=== PATIENT | male | born 1990 | race Caucasian/White ===

== ENCOUNTER 2016-09-19 07:31 | Emergency (ER) | payer BC ==
--- NOTE | 2016-09-19 07:37 | PDOC ---
History of Present Illness - General Chief Complaint: Pain, Acute Stated Complaint: TENDERNESS BILATERAL FLANK Time Seen by Provider: 09/19/16 07:33 History Source: Patient Exam Limitations: No Limitations - History of Present Illness Initial Comments: 09/19/16 07:52 This is a 25 yo M with a history of recurrent kidney stones who presents with a complaint of bilateral flank pain. Pt symptoms began 2 days ago. He awoke at 4:30 am with left flank pain which was severe. He took left over Percocet and Flomax. Symptoms resolved approximately 20 minutes later. He was well over the rest of the day. Yesterday, he awoke with left flank pain again at 4:30am. He was able to go to work because pain was manageable. He awoke this morning and noted that when he attempted to urinate, he did not have much urine output and what came out was very dark He states pain is mild, describes it as an "ache", rated 2/10, no radiation to the groin He has not taken any pain medications today He denies dysuria, fevers, chills He is tolerating po He denies excessive exercise or new work outs Pt denies muscle tightness/firmness Pt denies trauma of any kind No recent travel 09/19/16 07:53 PMH: kidney stones PSH: lithotrypsy x 2 Meds: denies ALL: NKDA Social: denies drug or cigarette use GENERAL/CONSTITUTIONAL: No: fever, chills, weakness, loss of appetite. HEAD, EYES, EARS, NOSE AND THROAT: No: change in vision, ear pain, discharge, sore throat, throat swelling. CARDIOVASCULAR: No: chest pain, lightheadedness, palpitations, syncope RESPIRATORY: No: cough, shortness of breath, wheezing, hemoptysis, stridor. GASTROINTESTINAL: No: nausea, vomiting, diarrhea, abdominal cramping, rectal bleeding, constipation. GENITOURINARY: No: dysuria, hematuria, frequency, urgency, flank pain. MUSCULOSKELETAL: Yes: bilateral flank discomfort No: neck pain, joint pain, muscle swelling or pain SKIN AND BREASTS: No: lesions, pallor, rash or easy bruising. NEUROLOGIC: No: headache, vertigo, paresthesias, weakness ENDOCRINE: No: unexplained weight gain or loss HEMATOLOGIC/LYMPHATIC: No: anemia, easy bleeding, swelling nodes. GENERAL: The patient is in no acute distress. HEAD: Normal with no signs of trauma. EYES: PERRLA, EOMI, sclera anicteric, conjunctiva clear. ENT: Ears normal, nares patent, oropharynx clear without exudates. Moist mucous membranes. NECK: Normal range of motion, supple without lymphadenopathy, JVD, or masses. LUNGS: Breath sounds equal, clear to auscultation bilaterally. No wheezes, and no crackles. HEART:Regular rate and rhythm, normal S1 and S2 without murmur, rub or gallop. ABDOMEN: Soft, nontender, normoactive bowel sounds. No guarding, no rebound. No masses palpable. EXTREMITIES: Normal range of motion, no edema. No clubbing or cyanosis. No erythema, or tenderness. NEUROLOGICAL: Cranial nerves II through XII grossly intact. Normal speech. No focal neurological deficits. MUSCULOSKELETAL: No CVA tenderness SKIN: Warm, Dry, normal turgor, no rashes or lesions noted. Past History - Past Medical History Allergies/Adverse Reactions: Allergies Allergy/AdvReac Type Severity Reaction Status Date / Time No Known Allergies Allergy Verified 09/19/16 07:33 Home Medications: Ambulatory Orders NK [No Known Home Medication] 09/19/16 Disorders: Yes (KIDNEY STONES) - Immunization History Immunization Up to Date: No - Psycho/Social/Smoking Cessation Hx Anxiety: No Suicidal Ideation: No Smoking Status: No Smoking History: Unknown if ever smoked Number of Cigarettes Smoked Daily: 0 Cigars Per Day: 0 'Breaking Loose' booklet given: 05/20/13 Hx Alcohol Use: No Substance Use Type: Marijuana ED Treatment Course - LABORATORY CBC & Chemistry Diagram: 09/19/16 07:45 09/19/16 07:45 Medical Decision Making - Medical Decision Making 09/19/16 08:05 25 yo M presenting to the ER with flank pain Pt has a history of kidney stones 09/19/16 08:07 Will do labs Will do renal US (pt has had 4 CTs in the past few years) Will give IVF Pt does not want strong pain meds Will give Tylenol IV (pt has had not renal insufficiency historically, unclear if discolored urine is the result of ATN) Will re assess 09/19/16 08:30 Laboratory Tests 05/15/15 05/15/15 09/19/16 03:30 03:30 07:45 WBC 9.8 D 7.5 Hgb 16.2 16.2 Hct 48.7 49.0 Plt Count 318 D 280 Neutrophils % 56.8 D Lymphocytes % 32.2 D BUN 19 H Creatinine 1.2 Random Glucose 112 H D Urine RBC Urine WBC Ur Epithelial Cells Urine Bacteria 09/19/16 09/19/16 07:45 07:45 WBC Hgb Hct Plt Count Neutrophils % Lymphocytes % BUN 14 D Creatinine 1.1 Random Glucose 117 H Urine RBC 5-10 Urine WBC 0-3 Ur Epithelial Cells Moderate Urine Bacteria Moderate US pending Pt has slight pain Will give toradol 09/19/16 10:18 Laboratory Tests 09/19/16 07:45 Total Bilirubin 0.8 Direct Bilirubin 0.1 AST 46 H D ALT 66 H D Alkaline Phosphatase 57 Total Protein 7.6 Albumin 4.5 09/19/16 10:20 09/19/16 12:30 Laboratory Tests 09/19/16 10:35 Acetaminophen < 2 L 09/19/16 12:31 U/S: no hydronephrosis per verbal report by Dr Mercedes No read officially in the system to give to patient Will ask pt to follow up with Dr Wing within 1 week I discussed the physical exam findings, ancillary test results and final diagnoses with the patient. I answered all of the patient's questions. The patient was satisfied with the care received and felt comfortable with the discharge plan and treatment plan. The patient will call their primary care physician within 24 hours to arrange follow-up and will return to the Emergency Department with any new, persistent or worsening symptoms. *DC/Admit/Observation/Transfer Diagnosis at time of Disposition: Acute flank pain - Discharge Dispostion Disposition: HOME Condition at time of disposition: Stable Admit: No - Patient Instructions Printed Discharge Instructions: DI for Flank Pain Additional Instructions: Vu Thank you for coming in to the ER today Please review your labs and ultrasound Please stay hydrated, drink as much fluid as possible Please follow up with your Urologist in 2-3 days Please continue to strain your urine The liver function numbers are slightly elevated You should follow this up in the next week (earlier if you notice abdominal pain , changes in the whites of your eyes, any new symptoms) - Post Discharge Activity Work/School Note: Back to Work
[2016-09-19 07:38] VITALS: BP 151/103; PULSE 115; TEMP 98.4; BMI 27.9
[2016-09-19 07:51] LABS: BASOPHIL 2.8 % (0-2.0); EOSINOPHIL 1.2 % (0-4.5); MCH 29.1 pg (25.7-33.7); MCHC 33.2 g/dl (32.0-35.9); MEAN CELL VOLUME 87.9 fl (80-96); MEAN PLT VOLUME 8.3 fl (7.5-11.1); NEUTROPHILS 56.8 % (42.8-82.8); PLATELET COUNT 280 K/MM3 (134-434); RDW 12.5 % (11.9-15.9); WHITE BLOOD COUNT 7.5 K/mm3 (4.0-10.0)
[2016-09-19] MEDS ORDERED: ACETAMINOPHEN 1000 MG/100 ML VIAL (NON FORMULARY) IVPB ONE (07:53)
[2016-09-19] MEDS ORDERED: SODIUM CHLORIDE 0.9% 1000 ML INFUS.BAG IV ONE (07:53)
[2016-09-19 07:54] LABS: PH,URINE 5.5 (4.5-8); URINE APPEARANCE CLOUDY; URINE BILIRUBIN Negative (NEGATIVE); URINE BLOOD 3+ (NEGATIVE); URINE COLOR YELLOW; URINE GLUCOSE (UA) Negative (NEGATIVE); URINE KETONE Negative (NEGATIVE); URINE LEUK ESTERASE Negative (NEGATIVE); URINE NITRITE Negative (NEGATIVE); URINE PROTEIN 1+ (NEGATIVE); URINE UROBILINOGEN 0.2 E.U/dl (0.2-1.0)
[2016-09-19 07:55] LABS: URINE BACTERIA MODERATE /hpf (NEGATIVE); URINE WBC 0-3 (3-5)
[2016-09-19 07:56] LABS: URINE MUCUS FEW
[2016-09-19 08:08] LABS: CALCIUM 9.4 mg/dl (8.4-10.2); CREATININE 1.1 mg/dl (0.6-1.3)
[2016-09-19] MEDS ORDERED: ACETAMINOPHEN INJECTION 100 ML IVPB ONE (08:13)
[2016-09-19] MEDS ORDERED: KETOROLAC TROMETHAMINE 30 MG/1 ML VIAL ONE (09:09)
[2016-09-19] MEDS ORDERED: KETOROLAC TROMETHAMINE 30 MG/1 ML VIAL IVPUSH ONE (09:09)
[2016-09-19 10:11] LABS: ALBUMIN 4.5 g/dl (3.5-5.0); BILIRUBIN,DIRECT 0.1 mg/dl (0.0-0.2); BILIRUBIN,TOTAL 0.8 mg/dl (0.2-1.0); TOT PROT 7.6 g/dl (6.4-8.3)
== END 2016-09-19 12:37 | disposition home or self-care (01) ==
LOC: FER 07:31
PROC: 3E033NZ Introduction of Analgesics, Hypnotics, Sedatives into Peripheral Vein, Percutaneous Approach (ICD-10-PCS; principal; 2016-09-19)
PROC: 3E0333Z Introduction of Anti-inflammatory into Peripheral Vein, Percutaneous Approach (ICD-10-PCS; 2016-09-19)
DX: R10.9 Unspecified abdominal pain (principal); Z87.442 Personal history of urinary calculi
CPT/HCPCS: 36415; 76775-TC; 80048; 80076; 80307; 81003; 81015; 85025; 99282-25

== ENCOUNTER 2016-10-02 12:41 | Emergency (ER) | payer BC ==
[2016-10-02] MEDS ORDERED: KETOROLAC TROMETHAMINE 30 MG/1 ML VIAL IVPUSH ONE (12:53)
[2016-10-02] MEDS ORDERED: TAMSULOSIN HCL 0.4 MG CAP.ER.24H (FP) PO ONE (12:53)
[2016-10-02] MEDS ORDERED: SODIUM CHLORIDE 1,000 ML IV STA (12:53)
[2016-10-02 12:55] VITALS: TEMP 98.7; BMI 28.4
[2016-10-02] MEDS ORDERED: TAMSULOSIN HCL 0.4 MG CAP.ER.24H (FP) ONE (13:02)
[2016-10-02] MEDS ORDERED: KETOROLAC TROMETHAMINE 30 MG/1 ML VIAL ONE (13:02)
--- NOTE | 2016-10-02 13:05 | PDOC ---
History of Present Illness - General Chief Complaint: Hematuria Stated Complaint: FLANK PAIN Time Seen by Provider: 10/02/16 12:46 History Source: Patient, Old Records Exam Limitations: No Limitations - History of Present Illness Initial Comments: 10/02/16 13:01 25-year-old male with past medical history of kidney stones, bilateral, history of lithotripsy presents with bilateral flank pain since yesterday. Patient was recently here on September 19 for left flank pain and hematuria. He had an ultrasound performed which demonstrated bilateral kidney stones. The patient was discharged on pain medications and Flomax. Patient reported that his pain resolved after day or so as well as his hematuria. Noted yesterday that he was started and developed bilateral flank pains again. And hematuria consistent with his prior kidney stones. Denies fevers, chills. Reports mild dysuria but thinks it secondary to the stones. Past History - Past Medical History Allergies/Adverse Reactions: Allergies Allergy/AdvReac Type Severity Reaction Status Date / Time No Known Allergies Allergy Verified 09/19/16 07:33 Home Medications: Ambulatory Orders NK [No Known Home Medication] 09/19/16 Disorders: Yes (KIDNEY STONES) Kidney Stones: Yes - Immunization History Immunization Up to Date: No - Psycho/Social/Smoking Cessation Hx Anxiety: No Suicidal Ideation: No Smoking Status: No Smoking History: Unknown if ever smoked Have you smoked in the past 12 months: No Number of Cigarettes Smoked Daily: 0 Cigars Per Day: 0 Information on smoking cessation initiated: No 'Breaking Loose' booklet given: 05/20/13 Hx Alcohol Use: No Drug/Substance Use Hx: Yes Substance Use Type: Marijuana Review of Systems - Review of Systems Able to Perform ROS?: Yes Comments:: 10/02/16 13:02 GENERAL/CONSTITUTIONAL: No fever, weakness. HEAD, EYES, EARS, NOSE AND THROAT: No change in vision. No ear pain or discharge. No sore throat. CARDIOVASCULAR: No chest pain or shortness of breath. RESPIRATORY: No cough, wheezing, or hemoptysis. GASTROINTESTINAL: No abdominal pain, nausea, vomiting, diarrhea, or decreased PO intolerance. GENITOURINARY: Bilateral flank pain and hematuria MUSCULOSKELETAL: No joint or muscle swelling or pain. No neck or back pain. SKIN: No rash NEUROLOGIC: No headache, vertigo, loss of consciousness, or change in strength/ sensation. ENDOCRINE: No increased thirst. No abnormal weight change. HEMATOLOGIC/LYMPHATIC: No anemia, easy bleeding, or history of blood clots. ALLERGIC/IMMUNOLOGIC: No hives or skin allergy. *Physical Exam - Vital Signs Last Vital Signs Temp Pulse Resp BP Pulse Ox 98.7 F 86 16 139/99 98 10/02/16 12:43 10/02/16 12:43 10/02/16 12:43 10/02/16 12:43 10/02/16 12:43 - Physical Exam Comments: 10/02/16 13:02 GENERAL: Awake, alert, and fully oriented, in no acute distress. HEAD: No signs of trauma EYES: PERRLA, EOMI, sclera anicteric, conjunctiva clear ENT: Auricles normal inspection, hearing grossly normal, nares patent, oropharynx clear without exudates. NECK: Normal ROM, supple, no lymphadenopathy, JVD, or masses LUNGS: Breath sounds equal, clear to auscultation bilaterally. No wheezes, and no crackles HEART: Regular rate and rhythm, normal S1 and S2, no murmurs, rubs or gallops ABDOMEN: Soft, nontender, normoactive bowel sounds. No guarding, no rebound. No masses. + bilateral CVA tenderness EXTREMITIES: Normal range of motion, no edema. No clubbing or cyanosis. No cords, erythema, or tenderness NEUROLOGICAL: Cranial nerves II through XII grossly intact. Normal speech, normal gait SKIN: Warm, Dry, normal turgor, no rashes or lesions noted. ED Treatment Course - LABORATORY CBC & Chemistry Diagram: 10/02/16 13:09 10/02/16 14:12 Medical Decision Making - Medical Decision Making 10/02/16 13:04 A portion of this note was documented by scribe services under my direction. I have reviewed the details of the note, within reason, and agree with the documentation with the following case summary and management plan written by me. Patient treated in the ED. Nursing notes are reviewed and incorporated into the medical decision-making. Vital signs reviewed. Peripheral IV access obtained by the nurse, laboratory studies are drawn and sent, reviewed and interpreted by myself. Vital Signs Temp Pulse Resp BP Pulse Ox 98.7 F 86 16 139/99 98 10/02/16 12:43 10/02/16 12:43 10/02/16 12:43 10/02/16 12:43 10/02/16 12:43 Given that the patient had an region ultrasound done on September 19 the demonstrates bilateral small kidney stones. I suspect that the patient is likely passing more kidney stones. Given that there is no identification of large kidney stones on prior ultrasounds and patient is in mild to mild/ moderate pain, we'll check labs, urinalysis and give Toradol and Flomax and reassess. If the workup is consistent with kidney stones and the patient exhibits improvement with symptoms management, we'll discharge patient with urology follow-up. 10/02/16 15:05 CBC, BMP 10/02/16 13:09 10/02/16 14:12 CMP Sodium 141 mmol/L (136-145) 10/02/16 14:12 Potassium 3.6 mmol/L (3.5-5.1) 10/02/16 14:12 Chloride 106 mmol/L (98-107) 10/02/16 14:12 Carbon Dioxide 27 mmol/L (22-28) 10/02/16 14:12 Anion Gap 8 (8-16) 10/02/16 14:12 BUN 15 mg/dl (7-18) 10/02/16 14:12 Creatinine 1.1 mg/dl (0.6-1.3) 10/02/16 14:12 Creat Clearance w eGFR > 60 (>60) 10/02/16 14:12 Random Glucose 93 mg/dl (74-106) D 10/02/16 14:12 Calcium 9.1 mg/dl (8.4-10.2) 10/02/16 14:12 Total Bilirubin 1.0 mg/dl (0.2-1.0) D 10/02/16 14:12 AST 26 U/L (10-42) D 10/02/16 14:12 ALT 32 U/L (10-40) D 10/02/16 14:12 Alkaline Phosphatase 48 U/L (32-92) 10/02/16 14:12 Total Protein 6.0 g/dl (6.4-8.3) L D 10/02/16 14:12 Albumin 3.8 g/dl (3.5-5.0) 10/02/16 14:12 Lipase 40 U/L (22-51) 10/02/16 14:12 Urine Test Results Urine Color Yellow 10/02/16 13:09 Urine Appearance Cloudy 10/02/16 13:09 Urine pH >= 9.0 (4.5-8) H D 10/02/16 13:09 Ur Specific [place] 1.015 (1.005-1.025) 10/02/16 13:09 Urine Protein 2+ (NEGATIVE) H 10/02/16 13:09 Urine Glucose (UA) Negative (NEGATIVE) 10/02/16 13:09 Urine Ketones Negative (NEGATIVE) 10/02/16 13:09 Urine Blood 3+ (NEGATIVE) H 10/02/16 13:09 Urine Nitrite Negative (NEGATIVE) 10/02/16 13:09 Urine Bilirubin Negative (NEGATIVE) 10/02/16 13:09 Ur Leukocyte Esterase Negative (NEGATIVE) 10/02/16 13:09 Urine RBC 30-50 /hpf (0-3) 10/02/16 13:09 Urine WBC 0-3 (3-5) 10/02/16 13:09 Ur Epithelial Cells Moderate /HPF 10/02/16 13:09 Urine Bacteria Moderate /hpf (NEGATIVE) 10/02/16 13:09 Blood work reviewed.. Urinalysis appears consistent with renal colic. Patient reports feeling better. I instructed the patient continue taking his Flomax and to take his medications. Patient reports that he has Percocets and Flomax from his previous visit. He will follow-up with his urologist Dr. Escobedo. Patient will go home with his significant other. I discussed the physical exam findings, ancillary test results and final diagnoses with the patient. I answered all of the patient's questions. The patient was satisfied with the care received and felt comfortable with the discharge plan and treatment plan. The patient will call their primary care physician within 24 hours to arrange follow-up and will return to the Emergency Department with any new, persistant or worsening symptoms. *DC/Admit/Observation/Transfer Diagnosis at time of Disposition: Renal colic, bilateral - Discharge Dispostion Disposition: HOME Condition at time of disposition: Improved - Referrals Referrals: Vu Craven MD [Staff Physician] - - Patient Instructions Printed Discharge Instructions: Kidney Stones -- Adult Additional Instructions: Please take your Flomax daily area you may take 600 mg of ibuprofen every 6 hours as needed for pain. For additional relief, take your tablet of Percocet every 6-8 hours as needed for pain. Please drink plenty fluids and rest. It is very important that you follow-up with your urologist. Call to schedule appointment.
[2016-10-02 13:21] LABS: PH,URINE >= 9.0 (4.5-8); URINE APPEARANCE Cloudy; URINE BILIRUBIN Negative (NEGATIVE); URINE GLUCOSE (UA) Negative (NEGATIVE); URINE KETONE Negative (NEGATIVE); URINE LEUK ESTERASE Negative (NEGATIVE); URINE NITRITE Negative (NEGATIVE); URINE UROBILINOGEN 0.2 E.U/dl (0.2-1.0)
[2016-10-02 13:23] LABS: URINE BLOOD 3+ (NEGATIVE); URINE COLOR YELLOW; URINE PROTEIN 2+ (NEGATIVE)
[2016-10-02 13:24] LABS: URINE RBC 30-50 /hpf (0-3); URINE WBC 0-3 (3-5)
[2016-10-02 13:25] LABS: RED BLOOD CELL CAST 0-3; URINE BACTERIA MODERATE /hpf (NEGATIVE); URINE HYALINE CAST 0-3 /lpf
[2016-10-02 13:38] LABS: EOSINOPHIL 0.7 % (0-4.5)
[2016-10-02 14:04] LABS: BASOPHIL 0.8 % (0-2.0); MCH 29.7 pg (25.7-33.7); MCHC 34.2 g/dl (32.0-35.9); MEAN CELL VOLUME 86.8 fl (80-96); MEAN PLT VOLUME 8.9 fl (7.5-11.1); NEUTROPHILS 65.6 % (42.8-82.8); PLATELET COUNT 290 K/MM3 (134-434); RDW 12.8 % (11.9-15.9); WHITE BLOOD COUNT 6.3 K/mm3 (4.0-10.0)
[2016-10-02 14:46] LABS: ALBUMIN 3.8 g/dl (3.5-5.0); ALK PHOS 48 U/L (32-92); ANION GAP 8 (8-16); CALCIUM 9.1 mg/dl (8.4-10.2); CO2 27 mmol/L (22-28); CREATININE 1.1 mg/dl (0.6-1.3); GLUCOSE,RANDOM 93 mg/dl (74-106); SGOT/AST 26 U/L (10-42); SGPT/ALT 32 U/L (10-40)
[2016-10-02] MEDS ORDERED: morphine CARPU-JECT 4 MG/1 ML DISP.SYRIN IVPUSH ONE (15:05)
[2016-10-02] MEDS ORDERED: morphine CARPU-JECT 10 MG/1 ML DISP.SYRIN ONE (15:15)
[2016-10-02 16:05] VITALS: BP 158/108; PULSE 91
== END 2016-10-02 16:10 | disposition home or self-care (01) ==
LOC: FER 12:41
PROC: 3E0333Z Introduction of Anti-inflammatory into Peripheral Vein, Percutaneous Approach (ICD-10-PCS; principal; 2016-10-02)
PROC: 3E033NZ Introduction of Analgesics, Hypnotics, Sedatives into Peripheral Vein, Percutaneous Approach (ICD-10-PCS; 2016-10-02)
PROC: 3E0337Z Introduction of Electrolytic and Water Balance Substance into Peripheral Vein, Percutaneous Approach (ICD-10-PCS; 2016-10-02)
DX: N23 Unspecified renal colic (principal); Z87.442 Personal history of urinary calculi
CPT/HCPCS: 36415; 80053; 81003; 81015; 83690; 85025; 87086; 99283-25

== ENCOUNTER 2017-03-01 05:53 | Emergency (ER) | payer BC ==
[2017-03-01] MEDS ORDERED: KETOROLAC TROMETHAMINE 30 MG/1 ML VIAL ONE (06:01)
[2017-03-01] MEDS ORDERED: ONDANSETRON 4 MG/2 ML VIAL ONE (06:01)
[2017-03-01 06:10] VITALS: TEMP 97.7; BMI 27.9
[2017-03-01] MEDS ORDERED: morphine CARPU-JECT 4 MG/1 ML DISP.SYRIN ONE ×3 (06:24→07:34)
--- NOTE | 2017-03-01 06:27 | PDOC ---
History of Present Illness - General Chief Complaint: Pain, Acute Stated Complaint: RT FLANK PAIN Time Seen by Provider: 03/01/17 06:27 History Source: Patient Exam Limitations: No Limitations Past History - Past Medical History Allergies/Adverse Reactions: Allergies Allergy/AdvReac Type Severity Reaction Status Date / Time No Known Allergies Allergy Verified 09/19/16 07:33 Home Medications: Ambulatory Orders NK [No Known Home Medication] 09/19/16 Disorders: Yes (KIDNEY STONES) Kidney Stones: Yes - Immunization History Immunization Up to Date: No - Psycho/Social/Smoking Cessation Hx Anxiety: No Suicidal Ideation: No Smoking Status: No Smoking History: Never smoked Have you smoked in the past 12 months: No Number of Cigarettes Smoked Daily: 0 Cigars Per Day: 0 'Breaking Loose' booklet given: 05/20/13 Hx Alcohol Use: No Drug/Substance Use Hx: Yes Substance Use Type: Marijuana *Physical Exam - Vital Signs Last Vital Signs Temp Pulse Resp BP Pulse Ox 97.7 F 108 H 24 146/102 100 03/01/17 06:00 03/01/17 06:00 03/01/17 06:00 03/01/17 06:00 03/01/17 06:00 *DC/Admit/Observation/Transfer - Discharge Dispostion Condition at time of disposition: Stable
[2017-03-01] MEDS ORDERED: SODIUM CHLORIDE 1,000 ML IV ONE (06:29)
[2017-03-01] MEDS ORDERED: ONDANSETRON 4 MG/2 ML VIAL IVPUSH ONE (06:33)
[2017-03-01] MEDS ORDERED: KETOROLAC TROMETHAMINE 30 MG/1 ML VIAL IVPUSH ONE (06:34)
[2017-03-01] MEDS ORDERED: morphine CARPU-JECT 2 MG/1 ML DISP.SYRIN IVPUSH ONE ×2 (06:35→06:53)
--- NOTE | 2017-03-01 06:38 | PDOC ---
History of Present Illness - General Chief Complaint: Pain, Acute Stated Complaint: RT FLANK PAIN Time Seen by Provider: 03/01/17 06:27 History Source: Patient Exam Limitations: No Limitations - History of Present Illness Initial Comments: 03/01/17 06:39 This is a 18-year-old male comes in complaining of right flank pain. Patient has a history of renal colic requiring lithotripsy in the past. Patient's acute onset approximately 3 hours prior to arrival. Patient says associated with nausea but no vomiting. Patient took some Motrin for the pain without relief so came in for evaluation. PAST MEDICAL HISTORY: no significant history PAST SURGICAL HISTORY: no significant history FAMILY HISTORY: no pertinant history SOCIAL HISTORY: Pt lives with family and is employed. MEDICATIONS: reviewed ALLERGIES: As per nursing notes Review of Systems General: No fevers or chills, no weakness, no weight loss HEENT: No change in vision. No sore throat,. No ear pain CardioVascular: No chest pain or shortness of breath Respiratory:No cough, or wheezing. Gastrointestinal: no nausea, vomitting, diarrhea or constipation, No rectal bleeding Genitourinary: Right flank pain Musculoskeletal: No joint or muscle pain or swelling Neurologic: No headache, vertigo, dizziness or loss of consciousness Psychiatric: nor depression Skin: No rashes or easy bruising Endocrine: no increased thirst or abnormal weight change Allergic: no skin or latex allergy All other systems reviewed and normal GENERAL: The patient is awake, alert, and fully oriented, in no acute distress. HEAD: Normal with no signs of trauma. EYES: Pupils equal, round and reactive to light, extraocular movements intact, sclera anicteric, conjunctiva clear. BACK/Flank there is a moderate amount of pain on palpation of the right flank. There is no CVA tenderness on palpation. EXTREMITIES: Normal range of motion, no edema. NEUROLOGICAL: Normal speech, normal gait. PSYCH: Normal mood, normal affect. SKIN: Warm, Dry, normal turgor, no rashes or lesions noted. 03/01/17 06:43 Care of this patient was transferred to Dr. Vail at 7am. Case discussed in detail with oncoming Emergency Physician including history, physical exam and ancillary studies. Oncoming Emergency Physician has assumed care for the patient and will complete the evaluation and treatment. Patient is aware of the plan. Pt is clinically unchanged and stable. Past History - Past Medical History Allergies/Adverse Reactions: Allergies Allergy/AdvReac Type Severity Reaction Status Date / Time No Known Allergies Allergy Verified 09/19/16 07:33 Home Medications: Ambulatory Orders NK [No Known Home Medication] 09/19/16 Disorders: Yes (KIDNEY STONES) Kidney Stones: Yes - Immunization History Immunization Up to Date: No - Psycho/Social/Smoking Cessation Hx Anxiety: No Suicidal Ideation: No Smoking Status: No Smoking History: Never smoked Have you smoked in the past 12 months: No Number of Cigarettes Smoked Daily: 0 Cigars Per Day: 0 'Breaking Loose' booklet given: 05/20/13 Hx Alcohol Use: No Drug/Substance Use Hx: Yes Substance Use Type: Marijuana *Physical Exam - Vital Signs Last Vital Signs Temp Pulse Resp BP Pulse Ox 97.7 F 108 H 24 146/102 100 03/01/17 06:00 03/01/17 06:00 03/01/17 06:00 03/01/17 06:00 03/01/17 06:00 ED Treatment Course - RADIOLOGY Radiology Studies Ordered: Category Date Time Status ABDOMEN & PELVIS CT W/O CONTR [CT] Stat CT Scan 03/01/17 06:36 Ordered - Medications Given in the ED: ED Medications Discontinued Medications Generic Name Dose Route Start Last Admin Trade Name Freq PRN Reason Stop Dose Admin Ketorolac Tromethamine 30 mg 03/01/17 06:34 03/01/17 06:05 Toradol Injection - IVPUSH 03/01/17 06:35 30 mg NOW ONE Administration Morphine Sulfate 2 mg 03/01/17 06:35 03/01/17 06:25 Morphine Injection - IVPUSH 03/01/17 06:36 2 mg NOW ONE Administration Ondansetron HCl 4 mg 03/01/17 06:33 03/01/17 06:05 Zofran Injection IVPUSH 03/01/17 06:34 4 mg NOW ONE Administration *DC/Admit/Observation/Transfer Diagnosis at time of Disposition: Renal colic on right side - Discharge Dispostion Condition at time of disposition: Stable - Referrals Referrals: Ray Beth MD [Primary Care Provider] -
[2017-03-01] MEDS ORDERED: morphine CARPU-JECT 4 MG/1 ML DISP.SYRIN IVPUSH ONE (07:29)
[2017-03-01 07:36] LABS: BASOPHIL 0.2 % (0-2.0); EOSINOPHIL 0.8 % (0-4.5); MCH 29.8 pg (25.7-33.7); MCHC 34.3 g/dl (32.0-35.9); MEAN CELL VOLUME 86.8 fl (80-96); MEAN PLT VOLUME 9.3 fl (7.5-11.1); NEUTROPHILS 59.2 % (42.8-82.8); PLATELET COUNT 295 K/MM3 (134-434); RDW 12.7 % (11.9-15.9)
[2017-03-01 08:20] LABS: ALBUMIN 4.6 g/dl (3.5-5.0); ALK PHOS 58 U/L (32-92); ANION GAP 14 (8-16); CALCIUM 9.6 mg/dl (8.4-10.2); CO2 22 mmol/L (22-28); CREATININE 1.3 mg/dl (0.6-1.3); GLUCOSE,RANDOM 79 mg/dl (74-106); SGOT/AST 33 U/L (10-42); SGPT/ALT 31 U/L (10-40); TOT PROT 7.6 g/dl (6.4-8.3)
[2017-03-01 08:25] LABS: PH,URINE 5.5 (4.5-8); URINE BILIRUBIN 1+ (NEGATIVE); URINE GLUCOSE (UA) Negative (NEGATIVE); URINE KETONE 1+ (NEGATIVE); URINE LEUK ESTERASE Negative (NEGATIVE); URINE NITRITE Negative (NEGATIVE); URINE UROBILINOGEN 0.2 (0.2-1.0)
[2017-03-01 08:27] LABS: URINE APPEARANCE CLOUDY; URINE BLOOD 3+ (NEGATIVE); URINE COLOR YELLOW; URINE PROTEIN 2+ (NEGATIVE)
[2017-03-01 08:28] LABS: URINE WBC 0-3 (3-5)
[2017-03-01 08:29] LABS: URINE BACTERIA MODERATE /hpf (NEGATIVE); URINE HYALINE CAST 0-3 /lpf
[2017-03-01 08:32] LABS: URINE MUCUS FEW
[2017-03-01] MEDS ORDERED: TAMSULOSIN HCL 0.4 MG CAP.ER.24H (FP) PO ONE (09:48)
[2017-03-01] MEDS ORDERED: TAMSULOSIN HCL 0.4 MG CAP.ER.24H (FP) ONE (09:56)
--- NOTE | 2017-03-01 09:56 | PDOC ---
*Physical Exam - Vital Signs Last Vital Signs Temp Pulse Resp BP Pulse Ox 97.7 F 94 H 20 162/110 97 03/01/17 06:00 03/01/17 07:35 03/01/17 07:35 03/01/17 07:35 03/01/17 07:35 ED Treatment Course - LABORATORY CBC & Chemistry Diagram: 03/01/17 06:00 03/01/17 06:00 - ADDITIONAL ORDERS Additional order review: Laboratory Results 03/01/17 03/01/17 06:27 06:00 Sodium 138 Potassium 3.8 Chloride 102 Carbon Dioxide 22 Anion Gap 14 BUN 21 H D Creatinine 1.3 Creat Clearance w eGFR > 60 Random Glucose 79 Calcium 9.6 Total Bilirubin 1.0 AST 33 D ALT 31 Alkaline Phosphatase 58 D Total Protein 7.6 D Albumin 4.6 D Urine Color Yellow Urine Appearance Cloudy Urine pH 5.5 D Ur Specific [place] 1.025 Urine Protein 2+ H Urine Glucose (UA) Negative Urine Ketones 1+ H Urine Blood 3+ H Urine Nitrite Negative Urine Bilirubin 1+ H Urine Urobilinogen 0.2 Ur Leukocyte Esterase Negative Urine RBC 10-20 Urine WBC 0-3 Ur Epithelial Cells Moderate Amorphous Urates Few Urine Bacteria Moderate Hyaline Casts 0-3 Urine Mucus Few 03/01/17 06:00 RBC 5.51 MCV 86.8 MCHC 34.3 RDW 12.7 MPV 9.3 Neutrophils % 59.2 Lymphocytes % 29.4 Monocytes % 10.4 H Eosinophils % 0.8 Basophils % 0.2 - Medications Given in the ED: ED Medications Discontinued Medications Generic Name Dose Route Start Last Admin Trade Name Elq PRN Reason Stop Dose Admin Sodium Chloride 1,000 mls @ 1,000 mls/hr 03/01/17 06:29 03/01/17 06:05 Normal Saline - IV 03/01/17 07:28 1,000 mls/hr .Q1H ONE Administration Ketorolac Tromethamine 30 mg 03/01/17 06:34 03/01/17 06:05 Toradol Injection - IVPUSH 03/01/17 06:35 30 mg NOW ONE Administration Morphine Sulfate 2 mg 03/01/17 06:35 03/01/17 06:25 Morphine Injection - IVPUSH 03/01/17 06:36 2 mg NOW ONE Administration Morphine Sulfate 2 mg 03/01/17 06:53 03/01/17 06:54 Morphine Injection - IVPUSH 03/01/17 06:54 2 mg ONCE ONE Administration Morphine Sulfate 6 mg 03/01/17 07:29 03/01/17 07:45 Morphine Injection - IVPUSH 03/01/17 07:30 6 mg ONCE ONE Administration Ondansetron HCl 4 mg 03/01/17 06:33 03/01/17 06:05 Zofran Injection IVPUSH 03/01/17 06:34 4 mg NOW ONE Administration Medical Decision Making - Medical Decision Making 03/01/17 09:57 Patient signed out to me by Dr. Tabor from the overnight. Patient undergoing renal colic workup and was pending labs, urine, and spiral CT. On my reevaluation patient reported pain was getting bad again and was given 6 mg of morphine with good response. His noncontrast CT showed an 8 x 6 mm stone in the proximal right ureter. His labs revealed a leukocytosis to 12 but a urine that did not show signs of infection. I spoke with the patient's urologist Dr. Craven who offered two options, cystoscopy+stent today or lithotripsy saturday if pain is well controlled. I discussed these options with the patient and his mother. Pt would like to wait until saturday for the lithotripsy as his pain is well controlled. I spoke with Dr. Craven again - pt can go to his office for lithotripsy on Saturday and his office will call the patient today to schedule. I discussed the physical exam findings, ancillary test results and final diagnoses with the patient. I answered all of the patient's questions. The patient was satisfied with the care received and felt comfortable with the discharge plan and treatment plan. The patient will call their primary care physician within 24 hours to arrange follow-up and will return to the Emergency Department with any new, persistent or worsening symptoms. *DC/Admit/Observation/Transfer Diagnosis at time of Disposition: Renal colic on right side - Discharge Dispostion Disposition: HOME Condition at time of disposition: Stable Admit: No - Prescriptions Prescriptions: Tamsulosin HCl [Flomax] 0.4 mg PO DAILY #5 cap.er.24h Oxycodone HCl/Acetaminophen [Percocet 5-325 mg Tablet] 1 tab PO Q8H PRN #8 tablet MDD 3 tabs PRN Reason: Pain Level 6-10 - Referrals Referrals: Ray Beth MD [Primary Care Provider] - - Patient Instructions Additional Instructions: Please take 1000mg tylenol every 8 hours as needed for pain. If tylenol is not controlling your pain, you may take 1 percocet to control your pain. Do not take more than 3 percocet per day. This medication may make you drowsy, so do not drive or operate heavy machinery if you are using it. Do NOT take motrin, ibuprofen, aleve, aspirin or any other NSAID as this may cause bleeding when you have your lithotripsy Saturday. Dr. Park's office will be calling you today to schedule your lithotripsy on Saturday. If you do not hear by them by 3pm , give them a call to schedule your lithotripsy. Return to the emergency department immediately for any new or concerning symptoms or if your symptoms get worse. If was a pleasure taking care of you in the emergency department, we hope you are satisfied with our care. - Post Discharge Activity - Attestations Physician Attestion: 03/01/17 10:19 I, Dr. Diogenes Vail MD, attest that this document has been prepared under my direction and personally reviewed by me in its entirety. I further attest, that it accurately reflects all work, treatment, procedures and medical decision -making performed by me.
[2017-03-01 10:08] VITALS: BP 142/95; PULSE 84
[2017-03-01] MEDS ORDERED: ONDANSETRON *ODT* 4 MG TABLET SL ONE (10:32)
[2017-03-01] MEDS ORDERED: ONDANSETRON *ODT* 4 MG TABLET ONE (10:34)
== END 2017-03-01 10:38 | disposition home or self-care (01) ==
LOC: FER 05:53
PROC: 3E0333Z Introduction of Anti-inflammatory into Peripheral Vein, Percutaneous Approach (ICD-10-PCS; principal; 2017-03-01)
PROC: 3E033NZ Introduction of Analgesics, Hypnotics, Sedatives into Peripheral Vein, Percutaneous Approach (ICD-10-PCS; 2017-03-01)
PROC: 3E033GC Introduction of Other Therapeutic Substance into Peripheral Vein, Percutaneous Approach (ICD-10-PCS; 2017-03-01)
PROC: 3E0337Z Introduction of Electrolytic and Water Balance Substance into Peripheral Vein, Percutaneous Approach (ICD-10-PCS; 2017-03-01)
DX: N20.0 Calculus of kidney (principal)
CPT/HCPCS: 36415; 74176-TC; 80053; 81003; 81015; 85025; 99282-25

== ENCOUNTER 2017-03-21 04:16 | Emergency (ER) | payer BC ==
--- NOTE | 2017-03-21 04:20 | PDOC ---
History of Present Illness - General Chief Complaint: Pain, Acute Stated Complaint: L FLANK PAIN Time Seen by Provider: 03/21/17 04:19 - History of Present Illness Initial Comments: 03/21/17 04:19 This 26-year-old man with a long history of renal stones, with multiple lithotripsy procedures in the past presents with a few hour history of left flank pain. Patient was seen here approximately 3 weeks ago with right flank pain; CT at that time showed a 8 x 6 mm proximal right ureteral stone just distal to the UPJ with moderate hydronephrosis. There was also an 8 x 7 millimeter nonobstructing left renal pelvis stone. Patient underwent lithotripsy of the right sided stone on March 04. Patient did well until this morning when he awakened with the left flank pain. He had had very mild intermittent left flank discomfort over the last few days but no other symptoms. He denies nausea/vomiting/fever/chills. Patient's urologist is Dr. Craven Past History - Past Medical History Allergies/Adverse Reactions: Allergies Allergy/AdvReac Type Severity Reaction Status Date / Time No Known Allergies Allergy Verified 09/19/16 07:33 Home Medications: Ambulatory Orders Ondansetron [Ondansetron Odt] 4 mg PO Q8H PRN #10 tab.rapdis 03/01/17 Oxycodone HCl/Acetaminophen [Percocet 5-325 mg Tablet] 1 tab PO Q8H PRN #8 tablet MDD 3 tabs 03/01/17 Tamsulosin HCl [Flomax] 0.4 mg PO DAILY #5 cap.er.24h 03/01/17 Disorders: Yes (KIDNEY STONES) Kidney Stones: Yes - Immunization History Immunization Up to Date: No - Suicide/Smoking/Psychosocial Hx Smoking Status: No Smoking History: Never smoked Have you smoked in the past 12 months: No Number of Cigarettes Smoked Daily: 0 Cigars Per Day: 0 'Breaking Loose' booklet given: 05/20/13 Hx Alcohol Use: No Drug/Substance Use Hx: Yes Substance Use Type: Marijuana Review of Systems - Review of Systems Able to Perform ROS?: Yes Comments:: 12 point review of systems is negative except for what is noted in the history of present illness *Physical Exam - Physical Exam Comments: GENERAL: Adult male, alert and oriented 3, in marked distress secondary to left flank pain HEAD: Normal with no signs of trauma. EYES: PERRLA, EOMI, sclera anicteric, conjunctiva clear. ENT: Ears normal, nares patent, oropharynx clear without exudates. Dry mucous membranes. NECK: Normal range of motion, supple without lymphadenopathy, JVD, or masses. LUNGS: Breath sounds equal, clear to auscultation bilaterally. No wheezes, and no crackles. HEART:Regular rate and rhythm, normal S1 and S2 without murmur, rub or gallop. ABDOMEN:.normal bowel sounds moderate left flank tenderness No guarding or rebound.No masses No distention. EXTREMITIES: Normal range of motion, no edema. No clubbing or cyanosis. No erythema, or tenderness. NEUROLOGICAL: Cranial nerves II through XII grossly intact. Normal speech. No focal neurological deficits. MUSCULOSKELETAL: Back non-tender to palpation, no CVA tenderness SKIN: Warm, Dry, normal turgor, no rashes or lesions noted. ED Treatment Course - LABORATORY CBC & Chemistry Diagram: 03/21/17 05:00 03/21/17 04:26 Medical Decision Making - Medical Decision Making 03/21/17 04:45 Patient was given a liter normal saline IV as well as 30 mg of Toradol IV. Left flank pain continued; 4 mg morphine IV administered. Patient reported significant relief in pain. 03/21/17 06:03 Patient continues to be comfortable without recurrence of pain. Patient discharged with plan to continue drinking plenty of fluids; he will contact Dr. Craven today for follow-up within 1-2 days. The patient states that he has just had Percocet prescription refilled by Dr. Craven; he will use this as needed for severe pain and return here if symptoms are persistent. *DC/Admit/Observation/Transfer Diagnosis at time of Disposition: Renal colic on left side - Discharge Dispostion Disposition: HOME Condition at time of disposition: Stable - Referrals Referrals: Vu Craven MD [Primary Care Provider] - 24 hours - Patient Instructions Printed Discharge Instructions: Kidney Stones -- Adult Additional Instructions: Continue drinking plenty of fluids Percocet as needed for severe pain Contact Dr. Craven today and follow-up as scheduled Return to ER if you have severe pain or vomiting
[2017-03-21] MEDS ORDERED: KETOROLAC TROMETHAMINE 30 MG/1 ML VIAL IVPUSH ONE (04:21)
[2017-03-21 04:22] VITALS: BP 127/86; PULSE 88; TEMP 97.6; BMI 27.9
[2017-03-21] MEDS ORDERED: SODIUM CHLORIDE 1,000 ML IV STA (04:22)
[2017-03-21] MEDS ORDERED: morphine CARPU-JECT 4 MG/1 ML DISP.SYRIN IVPUSH ONE (04:30)
[2017-03-21 05:08] LABS: BASOPHIL 0.6 % (0-2.0); EOSINOPHIL 1.3 % (0-4.5); MCH 29.6 pg (25.7-33.7); MEAN CELL VOLUME 87.2 fl (80-96); MEAN PLT VOLUME 8.6 fl (7.5-11.1); NEUTROPHILS 56.2 % (42.8-82.8); PLATELET COUNT 298 K/MM3 (134-434); RDW 13.2 % (11.9-15.9); WHITE BLOOD COUNT 9.6 K/mm3 (4.0-10.0)
[2017-03-21 05:28] LABS: URINE APPEARANCE CLOUDY; URINE BILIRUBIN NEGATIVE (NEGATIVE); URINE BLOOD 3+ (NEGATIVE); URINE COLOR YELLOW; URINE GLUCOSE (UA) NEGATIVE (NEGATIVE); URINE KETONE NEGATIVE (NEGATIVE); URINE LEUK ESTERASE NEGATIVE (NEGATIVE); URINE NITRITE NEGATIVE (NEGATIVE); URINE UROBILINOGEN NEGATIVE mg/dL (0.2-1.0)
[2017-03-21 05:31] LABS: URINE PROTEIN 2+ (NEGATIVE)
[2017-03-21 05:34] LABS: ALBUMIN 4.2 g/dl (3.4-5.0); ALK PHOS 99 U/L (45-117); ANION GAP 6 (8-16); BILIRUBIN,TOTAL 0.4 mg/dL (0.2-1.0); CALCIUM 9.7 mg/dL (8.5-10.1); CO2 29 mmol/L (21-32); CREATININE 1.3 mg/dL (0.7-1.3); GLUCOSE,RANDOM 95 mg/dL (74-106); SGOT/AST 13 U/L (15-37); SGPT/ALT 35 U/L (12-78); TOT PROT 7.1 g/dl (6.4-8.2)
[2017-03-21 05:37] LABS: URINE MUCUS RARE; URINE RBC 2195 /hpf (0-3); URINE WBC 28 /hpf (3-5); YEAST FEW
== END 2017-03-21 06:01 | disposition home or self-care (01) ==
LOC: FER 04:16
PROC: 3E0333Z Introduction of Anti-inflammatory into Peripheral Vein, Percutaneous Approach (ICD-10-PCS; principal; 2017-03-21)
PROC: 3E033NZ Introduction of Analgesics, Hypnotics, Sedatives into Peripheral Vein, Percutaneous Approach (ICD-10-PCS; 2017-03-21)
PROC: 3E0337Z Introduction of Electrolytic and Water Balance Substance into Peripheral Vein, Percutaneous Approach (ICD-10-PCS; 2017-03-21)
DX: N23 Unspecified renal colic (principal)
CPT/HCPCS: 36415; 80053; 81003; 81015; 85025; 99283-25

== ENCOUNTER 2017-04-05 05:36 | Emergency (ER) | payer BC ==
[2017-04-05 05:45] VITALS: TEMP 97.5; BMI 27.9
[2017-04-05] MEDS ORDERED: KETOROLAC TROMETHAMINE 30 MG/1 ML VIAL IVPUSH ONE (05:51)
[2017-04-05] MEDS ORDERED: SODIUM CHLORIDE 1,000 ML IV ONE (05:51)
[2017-04-05] MEDS ORDERED: morphine CARPU-JECT 2 MG/1 ML DISP.SYRIN IVPUSH ONE (05:51)
[2017-04-05] MEDS ORDERED: KETOROLAC TROMETHAMINE 30 MG/1 ML VIAL ONE (05:56)
[2017-04-05] MEDS ORDERED: morphine CARPU-JECT 2 MG/1 ML DISP.SYRIN ONE (05:56)
--- NOTE | 2017-04-05 05:59 | PDOC ---
History of Present Illness - General Chief Complaint: Pain Stated Complaint: KIDNEY STONES Time Seen by Provider: 04/05/17 05:50 History Source: Patient Exam Limitations: No Limitations - History of Present Illness Initial Comments: 04/05/17 05:59 This is a 26-year-old male who comes in complaining of pain in his scrotum testicles and burning and difficulty urinating. Patient had lithotripsy over a week ago and was fine in tell 3 days ago when he started developing pain. Patient said now that he has burning on urination and it feels like he is unable to fully empty his bladder. Patient denies any back or flank pain. Patient denies any nausea or vomiting. Patient is otherwise healthy but does have history of kidney stones. PAST MEDICAL HISTORY: no significant history PAST SURGICAL HISTORY: no significant history FAMILY HISTORY: no pertinant history SOCIAL HISTORY: Pt lives with family and is employed. MEDICATIONS: reviewed ALLERGIES: As per nursing notes Review of Systems General: No fevers or chills, no weakness, no weight loss HEENT: No change in vision. No sore throat,. No ear pain CardioVascular: No chest pain or shortness of breath Respiratory:No cough, or wheezing. Gastrointestinal: no nausea, vomitting, diarrhea or constipation, No rectal bleeding Genitourinary: Plus dysuria and hematuria Musculoskeletal: No joint or muscle pain or swelling Neurologic: No headache, vertigo, dizziness or loss of consciousness Psychiatric: nor depression Skin: No rashes or easy bruising Endocrine: no increased thirst or abnormal weight change Allergic: no skin or latex allergy All other systems reviewed and normal GENERAL: The patient is awake, alert, and fully oriented, in no acute distress. HEAD: Normal with no signs of trauma. EYES: Pupils equal, round and reactive to light, extraocular movements intact, sclera anicteric, conjunctiva clear. Back/Flank: there is no back/flank tenderness on palpation and percussion. There is no CVA tenderness. There is some mild suprapubic tenderness. EXTREMITIES: Normal range of motion, no edema. NEUROLOGICAL: Normal speech, normal gait. PSYCH: Normal mood, normal affect. SKIN: Warm, Dry, normal turgor, no rashes or lesions noted. Case discussed in detail with oncoming Emergency Physician Dr. Jackman, including history, physical exam and ancillary studies. Oncoming Emergency Physician has assumed care for the patient and will complete the evaluation and treatment. Patient is aware of the plan. Pt is clinically unchanged and stable. Past History - Past Medical History Allergies/Adverse Reactions: Allergies Allergy/AdvReac Type Severity Reaction Status Date / Time No Known Allergies Allergy Verified 09/19/16 07:33 Home Medications: Ambulatory Orders Ondansetron [Ondansetron Odt] 4 mg PO Q8H PRN #10 tab.rapdis 03/01/17 Oxycodone HCl/Acetaminophen [Percocet 5-325 mg Tablet] 1 tab PO Q8H PRN #8 tablet MDD 3 tabs 03/01/17 Tamsulosin HCl [Flomax] 0.4 mg PO DAILY #5 cap.er.24h 03/01/17 Disorders: Yes (KIDNEY STONES) Kidney Stones: Yes - Immunization History Immunization Up to Date: No - Suicide/Smoking/Psychosocial Hx Smoking Status: No Smoking History: Never smoked Have you smoked in the past 12 months: No Number of Cigarettes Smoked Daily: 0 Cigars Per Day: 0 'Breaking Loose' booklet given: 05/20/13 Hx Alcohol Use: No Drug/Substance Use Hx: Yes Substance Use Type: Marijuana *Physical Exam - Vital Signs Last Vital Signs Temp Pulse Resp BP Pulse Ox 97.5 F L 92 H 16 146/102 100 04/05/17 05:42 04/05/17 05:42 04/05/17 05:42 04/05/17 05:42 04/05/17 05:42 ED Treatment Course - LABORATORY CBC & Chemistry Diagram: 04/05/17 06:00 04/05/17 06:00 *DC/Admit/Observation/Transfer Diagnosis at time of Disposition: Dysuria - Discharge Dispostion Disposition: HOME Condition at time of disposition: Stable - Patient Instructions Printed Discharge Instructions: DI for Dysuria -- Adult
[2017-04-05 06:39] LABS: BASOPHIL 0.6 % (0-2.0); EOSINOPHIL 1.3 % (0-4.5); MCH 29.6 pg (25.7-33.7); MCHC 34.1 g/dl (32.0-35.9); MEAN CELL VOLUME 86.8 fl (80-96); MEAN PLT VOLUME 8.3 fl (7.5-11.1); NEUTROPHILS 55.9 % (42.8-82.8); PLATELET COUNT 267 K/MM3 (134-434); RDW 13.2 % (11.9-15.9); WHITE BLOOD COUNT 8.7 K/mm3 (4.0-10.0)
[2017-04-05 06:45] LABS: PH,URINE 5.5 (5.0-8.0); URINE APPEARANCE CLEAR; URINE BILIRUBIN NEGATIVE (NEGATIVE); URINE BLOOD 3+ (NEGATIVE); URINE COLOR LT. YELLOW; URINE GLUCOSE (UA) NEGATIVE (NEGATIVE); URINE KETONE NEGATIVE (NEGATIVE); URINE NITRITE NEGATIVE (NEGATIVE); URINE PROTEIN NEGATIVE (NEGATIVE); URINE UROBILINOGEN 0.2 mg/dL (0.2-1.0)
[2017-04-05 07:01] LABS: URINE RBC 26 /hpf (0-3); URINE WBC 2 /hpf (3-5)
[2017-04-05 07:02] LABS: ALBUMIN 4.2 g/dl (3.4-5.0); ANION GAP 8 (8-16); BILIRUBIN,TOTAL 0.5 mg/dL (0.2-1.0); CALCIUM 9.7 mg/dL (8.5-10.1); CO2 29 mmol/L (21-32); CREATININE 1.1 mg/dL (0.7-1.3); GLUCOSE,RANDOM 89 mg/dL (74-106); SGOT/AST 16 U/L (15-37); SGPT/ALT 34 U/L (12-78); TOT PROT 7.3 g/dl (6.4-8.2)
[2017-04-05 07:03] LABS: ALK PHOS 82 U/L (45-117)
--- NOTE | 2017-04-05 07:19 | PDOC ---
*Physical Exam - Vital Signs Last Vital Signs Temp Pulse Resp BP Pulse Ox 97.5 F L 92 H 16 146/102 100 04/05/17 05:42 04/05/17 05:42 04/05/17 05:42 04/05/17 05:42 04/05/17 05:42 ED Treatment Course - LABORATORY CBC & Chemistry Diagram: 04/05/17 06:00 04/05/17 06:00 - ADDITIONAL ORDERS Additional order review: Laboratory Results 04/05/17 04/05/17 06:00 06:00 Sodium 140 Potassium 4.0 Chloride 103 Carbon Dioxide 29 Anion Gap 8 BUN 15 Creatinine 1.1 Creat Clearance w eGFR > 60 Random Glucose 89 Calcium 9.7 Total Bilirubin 0.5 D AST 16 D ALT 34 Alkaline Phosphatase 82 Total Protein 7.3 Albumin 4.2 Urine Color Lt. yellow Urine Appearance Clear Urine pH 5.5 Urine Protein Negative Urine Glucose (UA) Negative Urine Ketones Negative Urine Blood 3+ H Urine Nitrite Negative Urine Bilirubin Negative Urine Urobilinogen 0.2 Urine RBC 26 Urine WBC 2 04/05/17 06:00 RBC 5.12 MCV 86.8 MCHC 34.1 RDW 13.2 MPV 8.3 Neutrophils % 55.9 Lymphocytes % 34.0 Monocytes % 8.2 Eosinophils % 1.3 Basophils % 0.6 - Medications Given in the ED: ED Medications Discontinued Medications Generic Name Dose Route Start Last Admin Trade Name Freq PRN Reason Stop Dose Admin Sodium Chloride 1,000 mls @ 1,000 mls/hr 04/05/17 05:51 04/05/17 06:10 Normal Saline - IV 04/05/17 06:50 1,000 mls/hr .Q1H ONE Administration Ketorolac Tromethamine 30 mg 04/05/17 05:51 04/05/17 06:11 Toradol Injection - IVPUSH 04/05/17 05:52 30 mg ONCE ONE Administration Morphine Sulfate 2 mg 04/05/17 05:51 04/05/17 06:10 Morphine Injection - IVPUSH 04/05/17 05:52 2 mg ONCE ONE Administration Medical Decision Making - Medical Decision Making 04/05/17 07:18 Pt endorsed to me by Dr. Ott at shift change. Patient is s/p lithotripsy for L-sided kidney stone, now presenting with sensation of incomplete void, bladder pressure. Awaiting CMP and microscopy of UA, as well as ultrasound. Will cont to monitor. 04/05/17 10:07 Results reviewed with patient. He has f/u with urologist in 4 days. *DC/Admit/Observation/Transfer Diagnosis at time of Disposition: Dysuria - Discharge Dispostion Disposition: HOME Condition at time of disposition: Stable Admit: No - Patient Instructions Printed Discharge Instructions: DI for Dysuria -- Adult
[2017-04-05] MEDS ORDERED: SODIUM CHLORIDE 1,000 ML IV STA (08:41)
[2017-04-05 10:11] VITALS: BP 142/100; PULSE 62
[2017-04-05 11:19] LABS: URINE LEUK ESTERASE Negative (NEGATIVE)
== END 2017-04-05 10:12 | disposition home or self-care (01) ==
LOC: FER 05:36
DX: R30.0 Dysuria (principal); Z87.442 Personal history of urinary calculi
CPT/HCPCS: 36415; 76775-TC; 76856-TC; 80053; 81003; 81015; 85025; 99284-25

== ENCOUNTER 2020-04-12 20:27 | Emergency (ER) | payer BC ==
[2020-04-12] MEDS ORDERED: SODIUM CHLORIDE 1,000 ML IV ONE ×2 (20:39→21:54)
[2020-04-12] MEDS ORDERED: KETOROLAC TROMETHAMINE 30 MG/1 ML VIAL ONE (20:39)
[2020-04-12] MEDS ORDERED: KETOROLAC TROMETHAMINE 30 MG/1 ML VIAL IVPUSH ONE (20:40)
[2020-04-12] MEDS ORDERED: ONDANSETRON 4 MG/2 ML VIAL IVPUSH ONE (20:40)
[2020-04-12] MEDS ORDERED: ONDANSETRON 4 MG/2 ML VIAL ONE (20:40)
--- NOTE | 2020-04-12 20:41 | PDOC ---
History of Present Illness - General Chief Complaint: Pain, Acute Stated Complaint: KIDNEY STONES, RIGHT SIDED PAIN Time Seen by Provider: 04/12/20 20:31 History Source: Patient Exam Limitations: No Limitations - History of Present Illness Initial Comments: 04/12/20 21:55 This is a 29-year-old male with history of renal colic in the past. Patient said he has had multiple lithotripsies for large stones in the past. Patient comes in complaining of right flank pain times today. Patient is complaining of also some nausea. Patient denies any fevers chills. Allergies: as per nursing notes Past Medical History: none Social history: Lives with family. No smoking. No alcohol. No illicit drugs. Surgical history: None General: No fevers or chills, no weakness, no weight loss HEENT: No change in vision. No sore throat,. No ear pain CardioVascular: no chest discomfort. No shortness of breath Respiratory:No cough, or wheezing. Gastrointestinal: no nausea, vomiting, diarrhea or constipation, No rectal bleeding Genitourinary: No dysuria, hematuria, or frequency Musculoskeletal: No joint or muscle pain or swelling Flank: Right flank pain+ Neurologic: No headache, vertigo, dizziness or loss of consciousness Psychiatric: nor depression Skin: No rashes or easy bruising Endocrine: no increased thirst or abnormal weight change Allergic: no skin or latex allergy All other systems reviewed and normal GENERAL: The patient is awake, alert, and fully oriented, in no acute distress. HEENT:Head is normal with no signs of trauma. Eyes: Pupils equal, round and reactive to light, Ears, and Throat are normal. Neck is supple. No Lymphadenopathy. EXTREMITIES:atraumatic, Normal range of motion, no edema. NEUROLOGICAL: Normal speech, normal gait. PSYCH: Normal mood, normal affect. SKIN: Warm, Dry, normal turgor, no rashes or lesions noted. Assessment and plan: This is a 29-year-old male with right flank pain. Patient had blood work and spiral CT done. Prior spiral CT showed millimeters stone at the right UVJ. With moderate amount of hydronephrosis and hydroureter. Patient is feeling better able to tolerate p.o.'s prescription sent to his pharmacy for Percocet and Zofran. Patient discharged. Patient given copy of his CAT scan. Past History - Medical History Allergies/Adverse Reactions: Allergies Allergy/AdvReac Type Severity Reaction Status Date / Time No Known Allergies Allergy Verified 09/19/16 07:33 Home Medications: Ambulatory Orders Ondansetron [Ondansetron Odt] 4 mg PO Q8H PRN #10 tab.rapdis 03/01/17 Oxycodone HCl/Acetaminophen [Percocet 5-325 mg Tablet] 1 tab PO Q8H PRN #8 tablet MDD 3 tabs 03/01/17 Tamsulosin HCl [Flomax] 0.4 mg PO DAILY #5 cap.er.24h 03/01/17 Ondansetron [Zofran *Odt*] 8 mg SL TID #12 od.tablet 04/12/20 Oxycodone HCl/Acetaminophen [Percocet 5-325 mg Tablet] 1 - 2 tab PO Q4H #20 tablet MDD 8 04/12/20 Disorders: Yes (KIDNEY STONES) Kidney Stones: Yes - Immunization History Immunization Up to Date: No - Psycho-Social/Smoking History Smoking Status: No Smoking History: Never smoked Have you smoked in the past 12 months: No Number of Cigarettes Smoked Daily: 0 Cigars Per Day: 0 'Breaking Loose' booklet given: 05/20/13 ED Treatment Course - LABORATORY CBC & Chemistry Diagram: 04/12/20 20:45 04/12/20 20:44 Discharge - Discharge Information Problems reviewed: Yes Clinical Impression/Diagnosis: Renal colic on right side Condition: Stable Disposition: HOME - Admission No - Additional Discharge Information Prescriptions: Oxycodone HCl/Acetaminophen [Percocet 5-325 mg Tablet] 1 - 2 tab PO Q4H #20 tablet MDD 8 Ondansetron [Zofran *Odt*] 8 mg SL TID #12 od.tablet - Follow up/Referral - Patient Discharge Instructions Patient Printed Discharge Instructions: DI for Prescription Opioid Use Additional Instructions: For the pain take Percocet 1 or 2 tablets as often as every 4-6 hours as needed. For nausea take Zofran 1 tablet as often as 3 times a day. Follow-up with your urologist. Return to the emergency department immediately with ANY new, persistent or worsening symptoms. Continue any medications as previously prescribed by your physician. You should follow up with your primary doctor as soon as possible regarding today's emergency department visit. . Please make sure your doctor reviews the results of your emergency evaluation. Thank you for coming to the Emergency Department today for your care. It was a pleasure to see you today. Please note that your evaluation is INCOMPLETE until you follow-up with your doctor. - Post Discharge Activity
[2020-04-12] MEDS ORDERED: morphine SULFATE 4 MG/ML VIAL ONE ×2 (20:50→22:06)
[2020-04-12] MEDS ORDERED: morphine CARPU-JECT 2 MG/1 ML DISP.SYRIN IVPUSH ONE ×2 (20:51→22:07)
[2020-04-12 21:00] VITALS: BP 137/98; PULSE 110; TEMP 97.9; BMI 31.5
[2020-04-12 21:04] LABS: BASO % 0.1 % (0-2.0); EOS % 0.1 % (0-4.5); HEMATOCRIT 47.5 % (35.4-49); HEMOGLOBIN 16.5 GM/dl (11.7-16.9); LYMPH % 7.2 % (8-40); MCH 30.9 pg (25.7-33.7); MCHC 34.8 g/dl (32.0-35.9); MEAN CELL VOLUME 88.8 fl (80-96); MEAN PLT VOLUME 8.9 fl (7.5-11.1); MONO % 2.7 % (3.8-10.2); NEUT % 89.9 % (42.8-82.8); PLATELET COUNT 335 K/MM3 (134-434); RBC 5.34 M/mm3 (4.00-5.60); RDW 12.1 % (11.9-15.9); WHITE BLOOD COUNT 14.3 K/mm3 (4.0-10.8)
[2020-04-12 21:08] LABS: ALBUMIN 5.3 g/dl (3.4-5.0); CALCIUM 10.2 mg/dl (8.5-10); CREATININE 1.5 mg/dl (0.55-1.3); POTASSIUM 3.9 mmol/L (3.5-5.1); TOT PROT 7.9 g/dl (6.4-8.2)
[2020-04-12 21:15] LABS: CALCIUM OXALATE CRYSTALS FEW /hpf (NONE SEEN); EPITHELIAL CELLS RARE /hpf
--- NOTE | 2020-04-13 11:51 | PDOC ---
Patient Follow-up (Call Back) - Post ED Follow - Up Condition at time of discharge: Stable Disposition at time of original discharge: HOME - Disposition Additional Instructions/Notes: Call from this morning. Patient seen last night by Dr. Tabor. Medication sent to the wrong pharmacy. Patient's drug plan is with [facility]. Medication sent to [facility] canceled. Zofran, Motrin, and Percocet sent [place] to [facility] [place]. Recommended trying Motrin first to avoid the narcotic, that it might be just as effective. understands and will discuss with . They will follow-up with urologist as directed.
== END 2020-04-12 23:41 | disposition home or self-care (01) ==
LOC: FER 20:27
PROC: 3E0333Z Introduction of Anti-inflammatory into Peripheral Vein, Percutaneous Approach (ICD-10-PCS; principal; 2020-04-12)
PROC: 3E033NZ Introduction of Analgesics, Hypnotics, Sedatives into Peripheral Vein, Percutaneous Approach (ICD-10-PCS; 2020-04-12)
PROC: 3E033GC Introduction of Other Therapeutic Substance into Peripheral Vein, Percutaneous Approach (ICD-10-PCS; 2020-04-12)
PROC: 3E0337Z Introduction of Electrolytic and Water Balance Substance into Peripheral Vein, Percutaneous Approach (ICD-10-PCS; 2020-04-12)
DX: N23 Unspecified renal colic (principal)
CPT/HCPCS: 36415; 74176-TC; 80053; 81003; 81015; 85025; 99284-25